=== PATIENT | male | born 1965 ===

== ENCOUNTER 2020-12-25 07:15 | Day surgery (SDC) | payer OTHER ==
[~2020-12-25 07:15] MED LIST: AMLODIPINE BESYL5 MG PO; ASPIRIN81 MG PO; BLOOD PRESSURE; CHOLESTERO PO; CHOLESTEROL; DIABETES; HYDROCHLOROT12.5 MG PO; INH300 MG PO; LIPITOR20 MG PO; METFORMIN HYD1000 MG PO; VITAMIN B-625 MG PO; [UNRECOGNIZED DRUG - OTHER]
[2020-12-25 09:12] VITALS: BP 134/85
== END 2020-12-25 09:25 | DRG 395 ==
LOC: ENDO 07:15 → ORM 08:45 → ENDO 08:45
PROVIDERS: ATTEND Surgery
PROC: 0DBB8ZX Excision of Ileum, Via Natural or Artificial Opening Endoscopic, Diagnostic (ICD-10-PCS; principal; 2020-12-25)
DX: K63.5 Polyp of colon (principal); K64.8 Other hemorrhoids; E11.9 Type 2 diabetes mellitus without complications